=== PATIENT | female | born 1970 | race Caucasian/White ===

== ENCOUNTER → 2018-05-07 | Outpatient (CLI) | payer BC ==
[~2018-05-07] MED LIST: ATIVAN1 MG PO; CELEXA20 MG PO; COUMADIN2 M1 PO; COUMADIN7.5 M1 PO; DAYPRO600 M1 PO; LOVENOX30 MG/0.3 SC; MECLIZINE HCL25 M1 PO; NAPROSYN500 MG PO; NKHM; PERCOCET 325 MG1 TA2 PO; ROBAXIN750 MG PO; TRAMADOL50 MG PO; VICODIN 5/500 505 MG PO
== END | disposition home or self-care (01) ==
LOC: CT 15:00
DX: K43.9 Ventral hernia without obstruction or gangrene (principal); N28.1 Cyst of kidney, acquired; E27.8 Other specified disorders of adrenal gland; I70.0 Atherosclerosis of aorta; R19.7 Diarrhea, unspecified; M43.8X6 Other specified deforming dorsopathies, lumbar region; Z90.710 Acquired absence of both cervix and uterus; Z90.49 Acquired absence of other specified parts of digestive tract

== ENCOUNTER → 2018-09-02 | Outpatient (CLI) | payer BC | END | disposition home or self-care (01) | LOC: MRI 08-30 10:00 | DX: E27.9 Disorder of adrenal gland, unspecified (principal); Z90.49 Acquired absence of other specified parts of digestive tract ==

== ENCOUNTER 2019-01-26 10:44 | Emergency (ER) | payer BC ==
[~2019-01-26] VITALS: Ht 172.7 cm; Wt 90.7 kg
[2019-01-26 11:27] LABS: BASO % 0.2 % (0.0-1.0); EOS # 0.1 10*3/uL (0.0-0.4); EOS % 0.5 % (1.0-4.0); HEMATOCRIT 43.1 % (37.0-47.0); HEMOGLOBIN 14.5 g/dl (12.0-16.0); LYMPH # 2.1 10*3/uL (1.3-4.4); LYMPH % 16.3 % (27.0-41.0); MEAN CELL VOLUME 97.5 fl (81.0-99.0); MEAN CORPUSCULAR HGB 32.8 pg (27.0-31.0); MEAN CORPUSCULAR HGB CONC 33.6 g/dl (33.0-37.0); MEAN PLATELET VOLUME 9.5 fl (9.6-12.3); MONO # 0.7 10*3/uL (0.1-1.0); MONO % 5.1 % (3.0-9.0); NEUT # 10.1 10*3/uL (2.3-7.9); NEUT % 77.7 % (47.0-73.0); PLATELET COUNT AUTOMATED 324 10*3/uL (130-400); RED BLOOD COUNT 4.42 10*6/uL (4.10-5.10); RED CELL DISTRI WIDTH 13.2 % (0-14.5)
[2019-01-26 11:36] LABS: INTERNATIONAL NORM RATIO 2.1 (2.0-3.5)
[2019-01-26 11:41] LABS: ALBUMIN 3.7 gm/dl (3.1-4.5); ALKALINE PHOSPHATASE 84 U/L (45-117); BUN 7 mg/dl (7-24); CHLORIDE 108 mmol/L (98-107); CREATININE 0.76 mg/dL (0.55-1.02); POTASSIUM 3.5 mmol/L (3.5-5.1); SGOT/AST 17 IU/L (3-35); SGPT/ALT 32 U/L (12-78); SODIUM 141 mmol/L (136-145); TOTAL PROTEIN 7.1 gm/dL (6.4-8.2)
[2019-01-26] MEDS ORDERED: PREDNISONE50 MG PO (12:41)
[2019-01-26] MEDS ORDERED: AMOXICILLIN500 M2 PO (12:41)
== END 2019-01-26 12:43 | disposition home or self-care (01) ==
LOC: ED 10:44
PROVIDERS: Nurse Practitioner Family
DX: J44.1 Chronic obstructive pulmonary disease with (acute) exacerbation (principal); Z79.01 Long term (current) use of anticoagulants

== ENCOUNTER 2019-07-05 16:51 | Emergency (ER) | payer BC ==
[~2019-07-05] VITALS: Ht 167.6 cm; Wt 108.9 kg
[~2019-07-05 16:51] MED LIST changes: +AMOXICILLIN500 M2 PO; +PREDNISONE50 MG PO
[2019-07-05] MEDS ORDERED: TAMIFLU 75MG CA75 MG PO (17:46)
== END 2019-07-05 18:00 | disposition home or self-care (01) ==
LOC: ED 16:51
DX: J10.1 Influenza due to other identified influenza virus with other respiratory manifestations (principal); J44.9 Chronic obstructive pulmonary disease, unspecified; Z79.01 Long term (current) use of anticoagulants; Z79.899 Other long term (current) drug therapy

== ENCOUNTER 2019-11-03 16:37 | Emergency (ER) | payer BC ==
[~2019-11-03] VITALS: Ht 170.1 cm; Wt 108.9 kg
[~2019-11-03 16:37] MED LIST changes: +TAMIFLU 75MG CA75 MG PO
[2019-11-03 17:20] LABS: BASO % 0.5 % (0.0-1.0); EOS # 0.1 10*3/uL (0.0-0.4); EOS % 1.5 % (1.0-4.0); HEMATOCRIT 45.2 % (37.0-47.0); LYMPH # 2.3 10*3/uL (1.3-4.4); LYMPH % 28.8 % (27.0-41.0); MEAN CELL VOLUME 96.8 fl (81.0-99.0); MEAN CORPUSCULAR HGB 32.3 pg (27.0-31.0); MEAN CORPUSCULAR HGB CONC 33.4 g/dl (33.0-37.0); MEAN PLATELET VOLUME 9.6 fl (9.6-12.3); MONO # 0.6 10*3/uL (0.1-1.0); MONO % 7.4 % (3.0-9.0); NEUT # 4.8 10*3/uL (2.3-7.9); NEUT % 61.5 % (47.0-73.0); PLATELET COUNT AUTOMATED 327 10*3/uL (130-400); RED BLOOD COUNT 4.67 10*6/uL (4.10-5.10); RED CELL DISTRI WIDTH 13.6 % (0-14.5); WHITE BLOOD COUNT 7.8 10*3/uL (4.8-10.8)
[2019-11-03] MEDS ORDERED: FUROSEMIDE40 MG PO (17:31)
[2019-11-03] MEDS ORDERED: POTASSIUM CHLO10 ME5 PO (17:31)
[2019-11-03] MEDS ORDERED: ROPINIROLE HYDRO1 MG PO (17:31)
[2019-11-03 17:32] LABS: ACT PARTIAL THROMBO TIME 50.1 SECONDS (20.0-32.1); INTERNATIONAL NORM RATIO 2.5 (2.0-3.5)
[2019-11-03 17:35] LABS: ALBUMIN 3.8 gm/dl (3.1-4.5); ALKALINE PHOSPHATASE 83 U/L (45-117); BUN 7 mg/dl (7-24); CHLORIDE 109 mmol/L (98-107); CREATININE 0.77 mg/dL (0.55-1.02); LIPASE 148 U/L (73-393); POTASSIUM 3.8 mmol/L (3.5-5.1); SGOT/AST 21 IU/L (3-35); SGPT/ALT 40 U/L (12-78); SODIUM 140 mmol/L (136-145); TOTAL PROTEIN 7.7 gm/dL (6.4-8.2)
[2019-11-03 17:36] LABS: TROPONIN I < 0.015 ng/ml (<0.045)
[2019-11-03] MEDS ORDERED: ZITHROMAX250 MG PO (18:46)
== END 2019-11-03 19:40 | disposition home or self-care (01) ==
LOC: ED 16:37
PROVIDERS: Emergency Medicine
DX: R09.1 Pleurisy (principal); F17.200 Nicotine dependence, unspecified, uncomplicated; Z79.01 Long term (current) use of anticoagulants; Z79.899 Other long term (current) drug therapy

== ENCOUNTER → 2020-06-02 | Outpatient (CLI) | payer OTHER ==
[~2020-06-02] MED LIST changes: +FUROSEMIDE40 MG PO; +POTASSIUM CHLO10 ME5 PO; +ROPINIROLE HYDRO1 MG PO; +ZITHROMAX250 MG PO
[2020-06-02 09:36] LABS: FREE T4 0.96 ng/dl (0.76-1.46)
[2020-06-02 09:42] LABS: THYROID STIM HORMONE (HS) 1.73 uIU/ml (0.358-4.75)
[2020-06-02 10:05] LABS: FERRITIN 69.5 ng/mL (10.0-291.0)
[2020-06-03 22:06] LABS: CCP ANTIBODIES IGG/IGA 5 units (0-19)
== END | disposition home or self-care (01) ==
LOC: LAB 08:42
PROVIDERS: ATTEND Internal Medicine
DX: G25.81 Restless legs syndrome (principal); M15.9 Polyosteoarthritis, unspecified

== ENCOUNTER → 2020-06-11 | Outpatient (CLI) | payer OTHER ==
[2020-06-12 06:08] LABS: RHEUMATOID ARTHRITIS FACTOR <10.0 IU/mL (0.0-13.9)
[2020-06-14 06:06] LABS: CCP ANTIBODIES IGG/IGA 4 units (0-19)
[2020-06-14 14:10] LABS: ANTI-DSDNA ANTIBODIES 1 IU/mL (0-9); SJOGREN ANTI-SS-A <0.2 AI (0.0-0.9); SJOREN AB, ANTI-SS-B <0.2 AI (0.0-0.9)
== END | disposition home or self-care (01) ==
LOC: LAB 08:52
PROVIDERS: ATTEND Internal Medicine
DX: R76.8 Other specified abnormal immunological findings in serum (principal)

== ENCOUNTER → 2020-08-19 | Outpatient (CLI) | payer OTHER | END | disposition home or self-care (01) | LOC: US 15:00 | PROVIDERS: ATTEND Podiatrist | DX: M79.605 Pain in left leg (principal); R60.0 Localized edema ==

== ENCOUNTER → 2021-01-24 | Outpatient (CLI) | payer OTHER | LOC: WOUNDCARE 01:04 | PROVIDERS: ATTEND Nurse Practitioner | DX: L02.211 Cutaneous abscess of abdominal wall (principal); E55.9 Vitamin D deficiency, unspecified; J44.9 Chronic obstructive pulmonary disease, unspecified; G25.81 Restless legs syndrome; F41.9 Anxiety disorder, unspecified; F32.9 Major depressive disorder, single episode, unspecified; Z86.711 Personal history of pulmonary embolism; Z90.49 Acquired absence of other specified parts of digestive tract; Z90.710 Acquired absence of both cervix and uterus; Z98.890 Other specified postprocedural states; Z79.01 Long term (current) use of anticoagulants; Z79.899 Other long term (current) drug therapy ==

== ENCOUNTER → 2021-02-04 | Outpatient (CLI) | payer OTHER | LOC: WOUNDCARE 04:16 | PROVIDERS: ATTEND Nurse Practitioner | DX: L02.211 Cutaneous abscess of abdominal wall (principal); E55.9 Vitamin D deficiency, unspecified; J44.9 Chronic obstructive pulmonary disease, unspecified; G25.81 Restless legs syndrome; F41.9 Anxiety disorder, unspecified; F32.9 Major depressive disorder, single episode, unspecified; Z86.711 Personal history of pulmonary embolism; Z90.49 Acquired absence of other specified parts of digestive tract; Z90.710 Acquired absence of both cervix and uterus; Z98.890 Other specified postprocedural states; Z79.01 Long term (current) use of anticoagulants; Z79.899 Other long term (current) drug therapy ==

== ENCOUNTER → 2021-02-10 | Outpatient (CLI) | payer OTHER | LOC: WOUNDCARE 02:21 | PROVIDERS: ATTEND Nurse Practitioner | DX: L02.211 Cutaneous abscess of abdominal wall (principal); E55.9 Vitamin D deficiency, unspecified; J44.9 Chronic obstructive pulmonary disease, unspecified; G25.81 Restless legs syndrome; F41.9 Anxiety disorder, unspecified; Z86.711 Personal history of pulmonary embolism; Z90.49 Acquired absence of other specified parts of digestive tract; Z90.710 Acquired absence of both cervix and uterus; Z98.890 Other specified postprocedural states; Z79.01 Long term (current) use of anticoagulants; Z79.899 Other long term (current) drug therapy ==

== ENCOUNTER → 2021-02-18 | Outpatient (CLI) | payer OTHER ==
[2021-02-18 08:28] LABS: CREATININE 0.73 mg/dL (0.55-1.02)
== END | disposition home or self-care (01) ==
LOC: LAB 08:00
PROVIDERS: ATTEND Surgery
DX: R10.9 Unspecified abdominal pain (principal)

== ENCOUNTER → 2021-02-21 | Outpatient (CLI) | payer OTHER | END | disposition home or self-care (01) | LOC: CT 00:05 | PROVIDERS: ATTEND Surgery | DX: L02.211 Cutaneous abscess of abdominal wall (principal); K43.9 Ventral hernia without obstruction or gangrene; R10.9 Unspecified abdominal pain; E55.9 Vitamin D deficiency, unspecified; J44.9 Chronic obstructive pulmonary disease, unspecified; G25.81 Restless legs syndrome; F41.9 Anxiety disorder, unspecified; Z86.711 Personal history of pulmonary embolism; Z79.01 Long term (current) use of anticoagulants; Z79.899 Other long term (current) drug therapy ==

== ENCOUNTER → 2021-03-02 | Outpatient (CLI) | payer OTHER | LOC: WOUNDCARE 02-28 01:27 | PROVIDERS: ATTEND Nurse Practitioner | DX: L02.211 Cutaneous abscess of abdominal wall (principal); E55.9 Vitamin D deficiency, unspecified; J44.9 Chronic obstructive pulmonary disease, unspecified; G25.81 Restless legs syndrome; F41.9 Anxiety disorder, unspecified; F32.9 Major depressive disorder, single episode, unspecified; Z71.6 Tobacco abuse counseling; Z86.711 Personal history of pulmonary embolism; Z79.01 Long term (current) use of anticoagulants; Z79.899 Other long term (current) drug therapy ==

== ENCOUNTER → 2021-03-09 | Outpatient (CLI) | payer OTHER | LOC: WOUNDCARE 01:14 | PROVIDERS: ATTEND Nurse Practitioner | DX: L02.211 Cutaneous abscess of abdominal wall (principal); E55.9 Vitamin D deficiency, unspecified; J44.9 Chronic obstructive pulmonary disease, unspecified; G25.81 Restless legs syndrome; F41.9 Anxiety disorder, unspecified; F32.9 Major depressive disorder, single episode, unspecified; Z71.6 Tobacco abuse counseling; Z86.711 Personal history of pulmonary embolism; Z79.01 Long term (current) use of anticoagulants; Z79.899 Other long term (current) drug therapy ==

== ENCOUNTER → 2021-03-22 | Outpatient (CLI) | payer OTHER | LOC: WOUNDCARE 00:47 | PROVIDERS: ATTEND Surgery | DX: L02.211 Cutaneous abscess of abdominal wall (principal); E55.9 Vitamin D deficiency, unspecified; J44.9 Chronic obstructive pulmonary disease, unspecified; G25.81 Restless legs syndrome; F41.9 Anxiety disorder, unspecified; F32.9 Major depressive disorder, single episode, unspecified; Z71.6 Tobacco abuse counseling; Z86.711 Personal history of pulmonary embolism; Z79.01 Long term (current) use of anticoagulants; Z79.899 Other long term (current) drug therapy ==

== ENCOUNTER → 2021-03-30 | Outpatient (CLI) | payer OTHER | LOC: WOUNDCARE 08:00 → EDSTATUS 10:57 → WOUNDCARE 12:05 | PROVIDERS: ATTEND Nurse Practitioner Family | DX: L02.211 Cutaneous abscess of abdominal wall (principal); E55.9 Vitamin D deficiency, unspecified; J44.9 Chronic obstructive pulmonary disease, unspecified; G25.81 Restless legs syndrome; F41.9 Anxiety disorder, unspecified; F32.9 Major depressive disorder, single episode, unspecified; Z71.6 Tobacco abuse counseling; Z86.711 Personal history of pulmonary embolism; Z79.01 Long term (current) use of anticoagulants; Z79.899 Other long term (current) drug therapy ==

== ENCOUNTER → 2021-04-18 | Outpatient (CLI) | payer OTHER | LOC: WOUNDCARE 01:34 | PROVIDERS: ATTEND Nurse Practitioner Family | DX: L02.211 Cutaneous abscess of abdominal wall (principal); E55.9 Vitamin D deficiency, unspecified; J44.9 Chronic obstructive pulmonary disease, unspecified; G25.81 Restless legs syndrome; F41.9 Anxiety disorder, unspecified; F32.9 Major depressive disorder, single episode, unspecified; Z71.6 Tobacco abuse counseling; Z86.711 Personal history of pulmonary embolism; Z79.01 Long term (current) use of anticoagulants; Z79.899 Other long term (current) drug therapy ==

== ENCOUNTER → 2021-05-20 | Day surgery (SDC) | payer OTHER ==
[2021-05-18 09:01] VITALS: BP 166/92
[~2021-05-20] VITALS: Ht 167.6 cm; Wt 115.2 kg
[~2021-05-20] MED LIST changes: +LOVENOX100 MG/1 M PO
== END | disposition home or self-care (01) ==
LOC: SDC 05-17 14:00
PROVIDERS: ATTEND Surgery
DX: K43.2 Incisional hernia without obstruction or gangrene (principal); F41.9 Anxiety disorder, unspecified; J43.9 Emphysema, unspecified; Z86.711 Personal history of pulmonary embolism; F17.210 Nicotine dependence, cigarettes, uncomplicated; Z90.49 Acquired absence of other specified parts of digestive tract; Z20.822 Contact with and (suspected) exposure to COVID-19; Z53.8 Procedure and treatment not carried out for other reasons

== ENCOUNTER → 2022-07-12 | Outpatient (CLI) | payer OTHER ==
[~2022-07-12] MED LIST changes: +ATIVAN0.5 MG PO; +Coumadin7.5 MG PO; +REQUIP2 MG PO; -ROPINIROLE HYDRO1 MG PO
== END | disposition home or self-care (01) ==
LOC: US 08:17
PROVIDERS: ATTEND Internal Medicine
DX: R10.9 Unspecified abdominal pain (principal)

== ENCOUNTER 2022-10-02 08:27 | Emergency (ER) | payer OTHER ==
[~2022-10-02] VITALS: Wt 122.5 kg
[2022-10-02 09:15] LABS: BASO % 0.2 % (0.0-1.0); EOS % 0.2 % (1.0-4.0); HEMATOCRIT 46.3 % (37.0-47.0); LYMPH # 1.8 10*3/uL (1.3-4.4); LYMPH % 18.5 % (27.0-41.0); MEAN CELL VOLUME 96.9 fl (81.0-99.0); MEAN CORPUSCULAR HGB 32.4 pg (27.0-31.0); MEAN CORPUSCULAR HGB CONC 33.5 g/dl (33.0-37.0); MEAN PLATELET VOLUME 9.6 fl (9.6-12.3); MONO # 0.7 10*3/uL (0.1-1.0); MONO % 7.4 % (3.0-9.0); NEUT % 73.4 % (47.0-73.0); PLATELET COUNT AUTOMATED 279 10*3/uL (130-400); RED BLOOD COUNT 4.78 10*6/uL (4.10-5.10); RED CELL DISTRI WIDTH 13.2 % (0-14.5); WHITE BLOOD COUNT 9.5 10*3/uL (4.8-10.8)
[2022-10-02 09:41] LABS: ALKALINE PHOSPHATASE 102 U/L (46-116); BUN 10 mg/dl (9-23); CHLORIDE 107 mmol/L (98-107); LIPASE 50 U/L (12-53); POTASSIUM 4.3 mmol/L (3.4-5.1); SGPT/ALT 42 U/L (10-49); TOTAL PROTEIN 6.6 gm/dL (6.0-8.0); URIC ACID 4.4 mg/dL (3.1-7.8)
[2022-10-02] MEDS ORDERED: PREDNISONE50 MG PO (10:28)
== END 2022-10-02 10:32 | disposition home or self-care (01) ==
LOC: ED 08:27
PROVIDERS: Emergency Medicine
DX: M79.671 Pain in right foot (principal); Z79.899 Other long term (current) drug therapy; Z90.89 Acquired absence of other organs; Z90.49 Acquired absence of other specified parts of digestive tract; Z90.710 Acquired absence of both cervix and uterus; Z98.890 Other specified postprocedural states; F17.200 Nicotine dependence, unspecified, uncomplicated

== ENCOUNTER → 2023-02-01 | Outpatient (CLI) | payer OTHER ==
[2023-02-01 15:29] LABS: BUN 6 mg/dl (9-23); CHLORIDE 105 mmol/L (98-107); POTASSIUM 3.9 mmol/L (3.4-5.1)
== END | disposition home or self-care (01) ==
LOC: LAB 14:42
PROVIDERS: ATTEND Internal Medicine
DX: U07.1 COVID-19 (principal)

== ENCOUNTER → 2023-04-03 | Outpatient (CLI) | payer OTHER | END | disposition home or self-care (01) | LOC: US 11:25 | PROVIDERS: ATTEND Podiatrist | DX: R60.0 Localized edema (principal) ==